=== PATIENT | male | born 1975 ===

== ENCOUNTER 2024-09-18 23:21 | Inpatient (IN) | payer BC, SELFPAY ==
[2024-09-18 21:41] VITALS: BP 139/91
[2024-09-18 22:03] VITALS: BMI 25.3
[2024-09-18 22:27] LABS: % Basophils 0.8 % (0-2); % Eosinophils 0.1 % (0-6); % Immature Granulocytes 0.7 % (0-0.5); % Lymphocytes 8.9 % (20.5-51.1); % Monocytes 10.6 % (1.7-9.3); % Neutrophils 78.9 % (42.2-75.2); Absolute Basophils 0.1 10^3/uL (0-0.2); Absolute Immature Granulocytes 0.1 10^3/uL (0-0.05); Absolute Monocytes 1.1 10^3/uL (0.1-0.6); Absolute Neutrophils 8.4 10^3/uL (1.4-6.5); Hematocrit 35.6 % (39.0-52.0); Hemoglobin 12.3 g/dL (13.0-18.0); Mean Corp Hgb Conc. 34.6 g/dL (33.0-37.0); Mean Corpuscular Hgb 35.3 pg (27.0-31.0); Mean Corpuscular Volume 102.3 fL (80.0-94.0); Nucleated Red Blood Cells % 0.2 % (-); Platelet Count 201 10^3/uL (130-400); Red Blood Cell Count 3.48 10^6/uL (4.70-6.10); Red Cell Dist. Width 17.4 % (11.5-14.5); White Blood Cell Count 10.7 10^3/uL (4.8-10.8)
[2024-09-18 22:40] LABS: ALT (SGPT) 15 U/L (0-50); AST (SGOT) 100 U/L (17-59); Albumin 3.5 g/dl (3.5-5.0); Alkaline Phosphatase 180 U/L (38-126); Blood Urea Nitrogen 7 mg/dl (9-20); Calcium 7.3 mg/dl (8.4-10.2); Carbon Dioxide 26 mmol/L (22-30); Chloride 93 mmol/L (98-107); Estimated Creatinine Clearance > 125 ml/min; Glucose 143 mg/dl (70-99); Lipase 303 U/L (23-300); Potassium 3.4 mmol/L (3.5-5.1); Sodium 135 mmol/L (135-145); Total Protein 7.3 g/dl (6.3-8.2); eGFR > 60.00
[2024-09-18] MEDS: THIAMINE INJECTION 100 MG IV (22:41)
[2024-09-18] MEDS: NSS 1000 IV (22:41)
[2024-09-18] MEDS: ATIVAN 1 MG IV (22:42)
--- NOTE | 2024-09-18 22:50 | ED.GENMED ---
History of Present Illness
General
Chief Complaint: Alcohol Problem
Source: patient and spouse
Exam Limitations: none
Time Seen by Provider: 09/18/24 22:31
Nursing documentation reviewed up to this point in time: agreed with
History of Present Illness
History of Present Illness:
49-year-old male with a past medical history of hypertension, diabetes, GERD, alcohol abuse who presents to the emergency room for evaluation of jaundice and alcohol withdrawal symptoms; sent for medical evaluation by outpatient alcohol rehab.
Patient reports that he is a very heavy drinker; he says he drinks at least a half a bottle of liquor a day. He says he has been drinking for many years very heavily. He says that he has never had alcohol withdrawal because he has never stopped
drinking for long enough to have withdrawal symptoms. He says that recently he decided to try to stop drinking alcohol; he contacted an outpatient rehab facility and reported that he was having jaundice and withdrawal symptoms and was referred to
the emergency room for assessment. His last drink was tonight around 6 PM he says he had a few beers. He says that over the past few hours he has started to develop tremors, mild anxiety, diaphoresis, nausea. No vomiting. Denies headache. He
denies any abdominal pain. He is notably jaundiced�his says that he has had intermittent jaundice that correlates with heavy drinking for years but over the past month she has noticed jaundice more consistently.
Review of Systems
Review of Systems
All Other Systems: ROS reviewed and negative except as documented in HPI and ROS
Constitutional: Denies fever
Respiratory: Denies trouble breathing
Cardiac: Denies chest pain
ABD/GI: Reports nausea; Denies abdominal pain, vomiting or diarrhea
: Denies flank pain
Musculoskeletal: Denies neck pain or back pain
Skin: Reports other (Jaundice)
Neurological: Denies headache
Psychiatric: Reports anxiety
Phy Exam
Physical Exam
Physical Exam:
General: Awake, alert, oriented x3; somewhat guarded
Head: Normocephalic, atraumatic
Eyes: Conjunctiva normal, pupils approximately 5 mm and reactive to light bilaterally, scleral icterus present
Throat: Airway intact, handling secretions
Neck: Trachea midline, supple without meningismus
Lungs: Clear to auscultation bilaterally, no wheezing, rales, rhonchi
Heart: Regular rate and rhythm, no murmurs, gallops, or rubs
Abd: Soft, non distended, nontender
Neuro: No gross deficits
Skin: Jaundiced, no rash
Extremities: Bilateral lower extremity edema; palpable pulses all extremities
Scores
Heart Failure Risk
Heart Failure Risk Score: Not Applicable
Heart Score for Chest Pain Patients
STEMI patient?: Not applicable
Withdrawal Assessment of Alcohol
Withdrawal Assessment Completed?: Yes
Nausea and Vomiting: Mild nausea with no vomiting
Tactile Disturbances: None
Tremor: Moderate, with patient's arms extended
Auditory Disturbances: Not present
Paroxysmal Sweats: Beads of sweat obvious on forehead
Visual Disturbances: Not present
Anxiety: Moderately anxious, or guarded, so anxiety is inferred
Headache, Fullness in Head: Not present
Agitation: Normal activity
Orientation and clouding of sensorium: Oriented and can do serial additions
Total CIWA Score: 13
Alcohol Withdrawal Medication Recommendation: Equal to MSAS Score 5-7. Lorazepam 1mg IV or PO NOW & re-assess q2hrs
Course
Orders/Labs/Results
Orders:
Orders
09/18/24 22:13
Complete Blood Count/With Diff Urgent
Comprehensive Metabolic Panel Urgent
Lipase Urgent
09/18/24 22:32
Electrocardiogram (*1) Urgent
Reason for Study: Tachycardia
EKG- Treatment ONCE
Acetaminophen Urgent
Alcohol Urgent
Drug Screen, Urine [Urine Drug Abuse Screen] Urgent
Salicylate Urgent
Lorazepam [Ativan] 1 mg IV NOW STA
Thiamine Injection 100 mg IV NOW STA
09/18/24 22:33
0.9% Sodium Chloride 1000 ml [Nss] 1,000 ml IV BOLUS
FOLic ACID [Folvite] 1 mg 0.9% Sodium Chloride 50 ml [Nss] 50 ml IV ONCE
09/18/24 22:46
Potassium Chloride [KCl] 20 meq 0.9% Sodium Chloride 150 ml [Nss] 150 ml IV NOW
09/18/24 22:49
US Abdomen Complete/Upper Urgent
Comment:
Reason For Exam: jaundice
Abnormal Lab Results
09/18/24
22:13
RBC 3.48 L 10^6/uL
(4.70-6.10)
Hgb 12.3 L g/dL
(13.0-18.0)
Hct 35.6 L %
(39.0-52.0)
MCV 102.3 H fL
(80.0-94.0)
MCH 35.3 H pg
(27.0-31.0)
RDW 17.4 H %
(11.5-14.5)
MPV 11.0 H fL
(7.4-10.4)
Abs Immat Gran (auto) 0.1 H 10^3/uL
(0-0.05)
Absolute Neuts (auto) 8.4 H 10^3/uL
(1.4-6.5)
Absolute Lymphs (auto) 1.0 L 10^3/uL
(1.2-3.4)
Absolute Monos (auto) 1.1 H 10^3/uL
(0.1-0.6)
Immature Gran % 0.7 H %
(0-0.5)
Neutrophils % 78.9 H %
(42.2-75.2)
Lymphocytes % 8.9 L %
(20.5-51.1)
Monocytes % 10.6 H %
(1.7-9.3)
Potassium 3.4 L mmol/L
(3.5-5.1)
Chloride 93 L mmol/L
(98-107)
BUN 7 L mg/dl
(9-20)
Creatinine 0.6 L mg/dL
(0.7-1.3)
Glucose 143 H mg/dl
(70-99)
Calcium 7.3 L mg/dl
(8.4-10.2)
Total Bilirubin 17.0 H mg/dl
(0.2-1.3)
AST 100 H U/L
(17-59)
Alkaline Phosphatase 180 H U/L
(38-126)
Lipase 303 H U/L
(23-300)
09/18/24 22:13
09/18/24 22:13
Vital Signs
Initial and Last Documented VS:
Initial Vital Signs
Temp Pulse Resp BP Pulse Ox
37.3 C 94 18 139/91 98
09/18/24 21:41 09/18/24 21:41 09/18/24 21:41 09/18/24 21:41 09/18/24 21:41
Last Documented Vital Signs
Temp Pulse Resp BP Pulse Ox
37.3 C 93 17 139/91 98
09/18/24 21:41 09/18/24 22:15 09/18/24 22:15 09/18/24 21:41 09/18/24 22:15
MDM/Problems Addressed
Differential Diagnosis Includes:
Alcohol withdrawal, alcoholic hepatitis, alcoholic pancreatitis, cirrhosis
MDM/Problems Addressed:
49-year-old male with long history of alcohol abuse presents to the emergency room with alcohol withdrawal symptoms and jaundice�he is currently seeking alcohol cessation. Heart rate in the 90s, normotensive, rest of vitals normal. Physical exam
as above. Will place an IV check labs including a CBC and CMP, lipase, INR. Check alcohol level and UDS. Will check EKG. Treat with thiamine/folate, fluids, Ativan. Reassess.
Labs reviewed: CBC shows acceptable platelet count. CMP mild hypokalemia which we will replete. T. bili markedly elevated at 17, AST marginally elevated at 100. Alk phos slightly elevated 180. Lipase marginal at 303. Will order upper abdominal
ultrasound to evaluate liver; nothing to suggest cholelithiasis/cholecystitis, LFTs seem quite clearly alcohol related. Will admit for continued treatment of alcohol withdrawal, fluids, follow-up of abnormal LFTs. Discussed with hospitalist.
Chronic conditions affecting care:
Alcohol abuse
*Pulse Oximetry
Patient hypoxic: no
*EKG
Interpreted by ED Provider?: Yes
Heart Rate: 93
Rate: normal
Rhythm: sinus
[place]: normal axis
Interval: long QT
QRS Pattern: normal QRS
Ischemia: no ischemia
*Critical Care Note
Total Time (30-74mins, 75-104mins- exclusive of procedures): Not Applicable
Data Reviewed
Source: patient and spouse
Patient Management
Social determinants of health affecting care: Substance abuse (Alcohol abuse)
Discussion with other providers: Hospitalist (Discussed with hospitalist)
Escalation/DeEscalation of care consider admission/obs:
Admission indicated
ED Attending Note
-
Portions of this chart may have been created with voice recognition software.� Occasional wrong word or��sound alike� substitutions may have occurred due to the inherent limitations of voice recognition software.
Discharge Plan
Departure
Patient Disposition: Admit
Date of Disposition: 09/18/24
Time of Disposition: 22:57
Admit to doctor: Melvin
Presentation/result/management discussed w/ accepting MD/DO: Hospitalist
Discharge Problem:
Alcohol withdrawal, Alcoholic hepatitis
Interventions
Interventions:
*Risk Screen - Suicide Last Done: 09/18/24 21:45
*General Assessment Last Done: 09/18/24 21:44
*Neglect/Abuse Screening Last Done: 09/18/24 21:45
ED- Fall Risk Assessment Last Done: 09/18/24 22:03
*ED COVID-19 Vaccine History Last Done: 09/18/24 21:44
ED- Neurological Assessment Last Done: 09/18/24 22:03
ED-Psychological Assessment Last Done: 09/18/24 22:07
Discharge Date and Time
Print Language: GERMAN
[2024-09-18 23:00] VITALS: BP 122/81
--- NOTE | 2024-09-18 23:14 | HPS.HSE ---
Family Physician
-
Family Physician:
Chief Complaint
-
alcohol withdrawal
History of Present Illness
49-year-old male past medical history of alcohol use disorder, hypertension, diabetes, GERD, varicose veins presenting to the emergency room for evaluation of jaundice and alcohol withdrawal symptoms. He was sent in for evaluation by outpatient
alcohol rehab. He states that he is a very heavy drinker. He drinks at least half a bottle of liquor per day. He has been drinking heavily for many years. He has never had alcohol withdrawal but he never stopped drinking for long enough to have
withdrawal symptoms. Recently he decided to stop drinking alcohol 2 days ago.
He contacted outpatient rehab facility and told them he was having jaundice and withdrawal symptoms was told to come to the emergency room. His last drink was tonight at 6 PM and he had a few beers at that time. He cut down on the liquor
yesterday. Over the past few years he developed tremors, mild anxiety, diaphoresis and nausea. Denies headache. He has had jaundice that correlates with alcohol for years but over the past month he has had more jaundice.
He is having some abdominal discomfort and burping a lot. He had an episode of vomiting. He denies vomiting blood or blood in the stool or black stool.
He does feel short of breath when he exerts himself at times.
He denies smoking cigarettes or using any drugs.
Medical History
Past Medical History
Past Medical History: Reports Other ( alcohol use disorder, hypertension, diabetes, GERD)
Past Surgical History: Reports Other (varicose veins surgery )
Social History
Tobacco: Non-smoker
Alcohol: Daily
Drug: None
Family History
Family History: Not pertinent
Allergies / Home Medications
Allergies reflects when Allergies were last updated in [facility].
Home Medications with original date entered in [facility]
Allergy/Medication List:
Allergies
Allergy/AdvReac Type Severity Reaction Status Date / Time
No Known Allergies Allergy Unverified 09/18/24 21:44
Home Medications
bisoprolol fumarate 10 mg tablet 10 mg PO HS 09/18/24
metformin 500 mg tablet 1,000 mg PO QPM 09/18/24
metformin 500 mg tablet 500 mg PO DAILY 09/18/24
omeprazole 40 mg capsule,delayed release 40 mg PO DAILY 09/18/24
Review of Systems
-
History Source: Patient
A 12 point ROS was completed and negative except as noted: Yes
Constitutional: Reports No Symptoms
EENT: Reports No Symptoms
Respiratory: Reports No Symptoms
Cardiac: Reports No Symptoms
Abdomen/GI: Reports See HPI
: Reports No Symptoms
Musculoskeletal: Reports No Symptoms
Skin: Reports No Symptoms
Neurological: Reports No Symptoms
Endocrine: Reports No Symptoms
Hematologic/Lymphatic: Reports No Symptoms
Psych: Reports No Symptoms
Physical Exam
Vital Signs
Vital Signs
Temp Pulse Resp BP Pulse Ox
99.1 F 93 17 139/91 98
09/18/24 21:41 09/18/24 22:15 09/18/24 22:15 09/18/24 21:41 09/18/24 22:15
Physical Exam
General: Well Developed, Well Nourished and No Apparent Distress
HEENT: NormoCephalic, Moist mucous membranes and Atraumatic
Respiratory: Clear
Cardiac: S1/S2 and Regular Rhythm; No Murmur or Rub
GI: Soft, Non Tender, Non Distended and Normal Bowel Sounds; No Organomegaly
Rectal: Deferred by Provider
Musculoskeletal: No Clubbing, No Cyanosis and No Edema
Skin: No Rash
Neuro: Nonfocal/grossly intact and Tremors
Laboratory Results
-
09/18/24 22:13
09/18/24 22:13
Laboratory Results
Total Bilirubin 17.0 mg/dl (0.2-1.3) H 09/18/24 22:13
AST 100 U/L (17-59) H 09/18/24 22:13
ALT 15 U/L (0-50) 09/18/24 22:13
Alkaline Phosphatase 180 U/L (38-126) H 09/18/24 22:13
Lipase 303 U/L (23-300) H 09/18/24 22:13
Data Reviewed
-
Lab Data: Labs Reviewed by me
Old Records: Reviewed
Impression/Plan
-
IMPRESSION:
PLAN:
# Alcohol withdrawal
# Alcohol use disorder
-Alcohol level, salicylate, Tylenol level pending
-IV fluids
-Thiamine and folate
-Alcohol withdrawal protocol
-Phenobarbital protocol
# Transaminitis likely alcoholic hepatitis
-PT/INR pending
-Check abdominal ultrasound
-Will likely require steroids
# Hypokalemia secondary to vomiting
-Replete potassium
-Check magnesium and phosphorus
#GERD/alcoholic gastritis
-continue PPI
Essential hypertension
-Continue bisoprolol
Type 2 diabetes
-Hold metformin
-Insulin sliding scale
Full code
DVT prophylaxis�heparin
Regular diet
[2024-09-18] MEDS: FOLVITE 50.2 MG IV (23:36)
[2024-09-19] VITALS (12 sets, daily range): BP systolic 106–137; BP diastolic 63–88; BMI 24.9
[2024-09-19] MEDS: KCL 160 MEQ IV (00:10)
[2024-09-19 00:11] LABS: Amphetamines Negative (Negative); Barbiturates Negative (Negative); Benzodiazepines Negative (Negative); Buprenorphine Negative (Negative); Cocaine Negative (Negative); Marijuana Negative (Negative); Methadone Negative (Negative); Methamphetamines Negative (Negative); Opiates Negative (Negative); Phencyclidine Negative (Negative); Tricyclic Antidepressants Negative (Negative)
[2024-09-19 00:36] LABS: INR 1.55; PT 18.8 Sec (11.4-14.6)
[2024-09-19 00:38] LABS: Acetaminophen < 10 ug/ml (10-30); Salicylate < 1.0 mg/dl (2.0-20.0)
[2024-09-19 00:39] LABS: Alcohol None Detected
[2024-09-19] MEDS: ATIVAN 1 MG PO (01:34)
[2024-09-19] MEDS: NSS 1000 IV ×3 (02:09→23:18)
[2024-09-19] MEDS: PHENOBARBITAL 104 MG IV (02:09)
[2024-09-19 02:28] LABS: % Basophils 0.9 % (0-2); % Eosinophils 0.2 % (0-6); % Immature Granulocytes 0.6 % (0-0.5); % Lymphocytes 9.9 % (20.5-51.1); % Monocytes 11.8 % (1.7-9.3); % Neutrophils 76.6 % (42.2-75.2); Absolute Basophils 0.1 10^3/uL (0-0.2); Absolute Immature Granulocytes 0.1 10^3/uL (0-0.05); Absolute Lymphocytes 0.9 10^3/uL (1.2-3.4); Absolute Monocytes 1.1 10^3/uL (0.1-0.6); Absolute Neutrophils 7.1 10^3/uL (1.4-6.5); Hematocrit 31.8 % (39.0-52.0); Hemoglobin 10.8 g/dL (13.0-18.0); Mean Corpuscular Hgb 35.1 pg (27.0-31.0); Mean Corpuscular Volume 103.2 fL (80.0-94.0); Mean Platelet Volume 10.7 fL (7.4-10.4); Nucleated Red Blood Cells % 0.2 % (-); Platelet Count 171 10^3/uL (130-400); Red Blood Cell Count 3.08 10^6/uL (4.70-6.10); Red Cell Dist. Width 17.6 % (11.5-14.5); White Blood Cell Count 9.3 10^3/uL (4.8-10.8)
[2024-09-19 02:44] LABS: ALT (SGPT) 13 U/L (0-50); AST (SGOT) 90 U/L (17-59); Alkaline Phosphatase 160 U/L (38-126); Blood Urea Nitrogen 7 mg/dl (9-20); Calcium 6.9 mg/dl (8.4-10.2); Carbon Dioxide 28 mmol/L (22-30); Chloride 95 mmol/L (98-107); Estimated Creatinine Clearance > 125 ml/min; Glucose 125 mg/dl (70-99); Magnesium 1.1 mg/dl (1.6-2.3); Phosphorus 2.4 mg/dl (2.5-4.5); Potassium 3.8 mmol/L (3.5-5.1); Sodium 136 mmol/L (135-145); Total Bilirubin 15.8 mg/dl (0.2-1.3); Total Protein 6.4 g/dl (6.3-8.2); eGFR > 60.00
[2024-09-19] MEDS: NSS (PRESERVATIVE FREE) 0.5 ML IV ×2 (02:48→18:16)
[2024-09-19] MEDS: ATIVAN 1 MG IV ×5 (02:48→22:11)
[2024-09-19] MEDS: CALCIUM GLUCONATE 100 IV (03:55)
--- NOTE | 2024-09-19 04:13 | PTCARENOTE ---
Addendum entered by Michael Benitez RN 09/19/24 04:17:
urgent lab work drawn per order. calcium came back critical 6.9, magnesium 1.1. notified Sh[facility] DIA, orders entered per MAR. care ongoing.
Original Note:
pt admitted from ED- pt is AAOx3- flat affect but cooperative. MSAS 5- medicated per MAR. pt with severe tremors. NSR/ST on the monitor, ST with activity. on RA 97%. denies any nausea at this time. eyes jaundice, scabs to bilateral toes CASE. IV
fluids infusing. phenobarb taper started. pt is unsteady on his feet d/t the tremors. bed alarm on d/t alcohol withdrawal. care ongoing.
[2024-09-19] MEDS: MAGNESIUM SULFATE 50 IV ×2 (04:46→14:37)
[2024-09-19 08:10] LABS: Glucose - Point of Care 125 mg/dl (70-99)
[2024-09-19] MEDS: FOLVITE 1 MG PO (08:10)
[2024-09-19] MEDS: THIAMINE INJECTION 200 MG IV ×2 (08:10→20:14)
[2024-09-19] MEDS: PROTONIX 40 MG PO (08:10)
[2024-09-19] MEDS: HEPARIN 5000 UNITS SC ×2 (08:10→20:14)
[2024-09-19] MEDS: PHENOBARBITAL 97.5 MG IV ×3 (08:11→22:08)
[2024-09-19] MEDS: NOVOLOG FLEXPEN-LOW RESISTANCE SC ×2 (08:23→17:12)
[2024-09-19 08:38] LABS: Glycohemoglobin (HgbA1c) 6.9 % (4.0-5.6)
--- NOTE | 2024-09-19 10:54 | CON.GI ---
Addendum entered and electronically signed by Jo Ann Dash MD 09/19/24 13:57:
I saw and examined the patient.
The DOCK BOSS's note was reviewed and I agree with the note.
49yo with hx GERD, HTN, NIDDM, colon polyps, varicose vein and ETOH abuse with admission overnight with ETOH withdrawal and jaundice. On admission noted with bili 17, AST 100, ALT 15, alk phos 180, lipases 303with INR 1.55 and normal platelets
171 and initial albumin 3.5. In review with patient he admits to heavy ETOH use for years with some increased use over last year. He currently was consuming 1/2 large bottle of liquor daily with last drink 09/18. No hx prior hepatology
evaluation or rehab in past. No hx GI bleeding, confusion or abdominal distention but now noted with LE swelling.
-- Decompensated liver cirrhosis versus alcoholic hepatitis. labs 09/18 DF 43.7 , MELD 3.0 23
-- Alcohol withdrawal
-- Electrolyte imbalance
-- Macrocytic anemia
-- Elevated lipase. Denies any abdominal pain at present. Possible pancreatitis
plan
Continue monitor MELD labs daily
Will hold off on steroids for now. Bilirubin is currently trending down. Will trend labs
Alcohol withdrawal protocol as per medical team
Correction of electrolytes as per medical team
check b12/ folate level
If patient develops abdominal pain will recommend CT abdomen with contrast
Counseled on alcohol abstinence in the future.
Outpatient GI/hepatology [id number] workup for liver cirrhosis
Original Note:
Consultation
-
Date/Time Consultation Requested: 09/19/24 0915
Date/Time Consultation Performed: 09/19/24 1045
Requesting Provider: Sd Helm MD
Performing Provider: SOUTH Celis, Jo Ann Dash MD
Reason for Consultation: ETOH withdrawal
Medical History
Chief Complaint / HPI
Chief Complaint: jaundice, ETOH withdrawal
History of Present Illness:
Pt is a 49yo with hx GERD, HTN, NIDDM, colon polyps, varicose vein and ETOH abuse with admission overnight with ETOH withdrawal and jaundice. On admission noted with bili 17, AST 100, ALT 15, alk phos 180, lipases 303with INR 1.55 and normal
platelets 171 and initial albumin 3.5. In review with patient he admits to heavy ETOH use for years with some increased use over last year. He currently was consuming 1/2 large bottle of liquor daily with last drink 09/18. No hx prior hepatology
evaluation or rehab in past. No hx GI bleeding, confusion or abdominal distention but now noted with LE swelling.
Pt admits to chronic diarrhea. He did have colonoscopy within last year did not recall where completed but noted polyps and due 1 year follow up. He also admits to nausea without vomiting but denies abdominal pain, or rectal bleeding. Distant
hx EGD for GERD in past.
Past Medical History
Past Medical History: GERD, HTN, NIDDM and Other (ETOH abuse, varicose veins, colon polyps (per patient due 1 year follow up) )
Social History
Tobacco: Former Smoker
Alcohol: Chronic Alcoholic
Drug: None
Personal:
Living: With Family
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
Family History
Family History: Other (no family hx cirrhosis, family hx DM and father with neuropathy)
Allergies / Home Medications
Allergy/AdvReac Type Severity Reaction Status Date / Time
No Known Allergies Allergy Unverified 09/18/24 21:44
�Medication �Instructions �Recorded
bisoprolol fumarate 10 mg tablet 10 mg PO HS Blood Pressure 09/18/24
metformin 500 mg tablet 1,000 mg PO QPM Diabetes 09/18/24
metformin 500 mg tablet 500 mg PO DAILY Diabetes 09/18/24
omeprazole 40 mg capsule,delayed 40 mg PO DAILY Gastrointestinal 09/18/24
release Issue
Review of Systems
-
History Source: Patient
Constitutional: Reports Fatigue
EENT: Reports Other (jaundice )
Respiratory: Reports No Symptoms
Cardiac: Reports No Symptoms
Abdomen/GI: Reports Nausea and Diarrhea
: Reports Dark Urine
Musculoskeletal: Reports Edema
Skin: Reports No Symptoms
Neurological: Reports Weakness and Other (tremors )
Endocrine: Reports No Symptoms
Hematologic/Lymphatic: Reports No Symptoms
Vital Signs
Temp Pulse Resp BP Pulse Ox
98.7 F 87 21 120/77 93
09/19/24 07:40 09/19/24 10:00 09/19/24 10:00 09/19/24 10:00 09/19/24 10:00
Physical Exam
Exam
General: Other (marked jaundice with tremors, drifts off in conversation)
HEENT: Normocephalic and Other (jaundice - icteric sclera )
Respiratory: Clear
Cardiac: Regular Rhythm
GI: Soft, Non Tender, Non Distended and Organomegaly (minimal Heptomegaly)
Musculoskeletal: No Clubbing and No Cyanosis
Skin: Warm and Dry
Neuro: Other (drifts off in conversation)
Psych: Calm
Results
WBC 9.3 10^3/uL (4.8-10.8) 09/19/24 02:19
Hgb 10.8 g/dL (13.0-18.0) L 09/19/24 02:19
Hct 31.8 % (39.0-52.0) L 09/19/24 02:19
MCV 103.2 fL (80.0-94.0) H 09/19/24 02:19
Plt Count 171 10^3/uL (130-400) 09/19/24 02:19
Absolute Neuts (auto) 7.1 10^3/uL (1.4-6.5) H 09/19/24 02:19
PT 18.8 Sec (11.4-14.6) H 09/18/24 23:46
INR 1.55 09/18/24 23:46
Sodium 136 mmol/L (135-145) 09/19/24 02:19
Sodium Cancelled 09/19/24 02:19
Potassium 3.8 mmol/L (3.5-5.1) 09/19/24 02:19
Potassium Cancelled 09/19/24 02:19
Chloride 95 mmol/L (98-107) L 09/19/24 02:19
Chloride Cancelled 09/19/24 02:19
Carbon Dioxide 28 mmol/L (22-30) 09/19/24 02:19
Carbon Dioxide Cancelled 09/19/24 02:19
BUN 7 mg/dl (9-20) L 09/19/24 02:19
BUN Cancelled 09/19/24 02:19
Creatinine 0.6 mg/dL (0.7-1.3) L 09/19/24 02:19
Creatinine Cancelled 09/19/24 02:19
Calcium 6.9 mg/dl (8.4-10.2) L* 09/19/24 02:19
Calcium Cancelled 09/19/24 02:19
Total Bilirubin 15.8 mg/dl (0.2-1.3) H 09/19/24 02:19
Total Bilirubin Cancelled 09/19/24 02:19
AST 90 U/L (17-59) H 09/19/24 02:19
AST Cancelled 09/19/24 02:19
ALT 13 U/L (0-50) 09/19/24 02:19
ALT Cancelled 09/19/24 02:19
Alkaline Phosphatase 160 U/L (38-126) H 09/19/24 02:19
Alkaline Phosphatase Cancelled 09/19/24 02:19
Lipase 303 U/L (23-300) H 09/18/24 22:13
Diagnostic Image Results:
09/19 US abdomen
IMPRESSION: The liver is enlarged with a coarsened echotexture suggestive of cirrhosis
The gallbladder is contracted
There is mild ascites
Prior GI Procedures:
EGD:years ago for GERD
Colonoscopy:withitn last year with polyps due 1 year follow up
Assessment / Plan
-
Pt is a 49yo with hx GERD, HTN, NIDDM, colon polyps, varicose vein and ETOH abuse with admission overnight with ETOH withdrawal and jaundice. On admission noted with bili 17, AST 100, ALT 15, alk phos 180, lipases 303with INR 1.55 and normal
platelets 171 and initial albumin 3.5. In review with patient he admits to heavy ETOH use for years with some increased use over last year. He currently was consuming 1/2 large bottle of liquor daily with last drink 09/18. No hx prior hepatology
evaluation or rehab in past. No hx GI bleeding, confusion or abdominal distention but now noted with LE swelling.
-ETOH hepatitis with elevated DF on admission with decompensation with LE swelling/ mild ascites
-likely underlying cirrhosis per US
-elevated lipase likely ETOH pancreatitis
-ETOH abuse with withdrawal
-anemia
-coagulopathy
-hypomagnesemia
-hypokalemia on admission
-LE swelling
-US with mild ascites
other med problems:
-GERD
-HTN
-NIDDM
-colon polyp with recommended 1 year follow up
-varicose veins
PLAN:
current admission with ETOH withdrawal, ETOH hepatitis/pancreatitis with likely underlying cirrhosis-- new diagnosis
based on admission labs 09/18 DF 43.7 with control of 13, MELD 3.0 23
cont to trend labs
will review with Dr. Dash for steroid course-- pt with some drifting off in conversation to ensure compliance with course also need replete of electrolytes
no signs of infection, no fever, leukocytoses etc
check hepatitis panel, will need OP serology testing
counseled on ETOH abstinence-- pt to consider ETOH rehab
ETOH withdrawal per medical team-
good nutrition add supplement daily
thiamine, folate repletion
-
-
Thank you for consultation and allowing me to participate in the patient's care. Please call the bi consultant GI physician during the after hours with any questions or concerns.
[2024-09-19] MEDS: NSS IV (11:07)
--- NOTE | 2024-09-19 11:37 | CM ---
CM met with pt bedside
Pt resides with his spouse and 3 step-children (14, 21 and 23 y/o) in a 2H with threshold step
Full flight to 2nd floor
Pt is indep with his ASLs- drives+, no ADs
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
Pt has a CGM- [employer]
Denies financial insecurities
PCP- Chidi Escobar
Rx- [facility]
Consult for D/A
Pt admits to daily ETOH use and interested in inpt tx at [facility]
Referral made to [facility] per pt request
Discussion with Dr Randa Helm- no anticipated dc date
Acutely ill and not medically ready for therapy at this time
CM will continue to follow for dc planning
Will benefit from PT/OT once appropriate
VM left for spouse/Leslee per pt request
Introduced self and explained role
Discharge Disposition- inpt D/A - watch for PT/OT needs
[2024-09-19 11:58] LABS: Glucose - Point of Care 153 mg/dl (70-99)
[2024-09-19] MEDS: NOVOLOG FLEXPEN-LOW RESISTANCE 1 UNITS SC (12:24)
--- NOTE | 2024-09-19 13:59 | W.PN.HOSP.TC ---
Today's Communication/Plan
-
Imaging
IMPRESSION: The liver is enlarged with a coarsened echotexture suggestive of cirrhosis
The gallbladder is contracted
There is mild ascites
Physical Exam
NAD, resting comfortably in bed, tremulous
Scleral icterus
Moist mucous membranes
No JVD
CTA bilateral
Normal S1-S2 no murmurs
Soft nontender nondistended bowel sounds active
No peripheral pitting edema
Jaundice
Moves extremities spontaneously
AAOx3
Assessment and Plan
Alcohol withdrawal in the setting of alcohol use disorder
-Thiamine IV followed by PO
-Folate
-MSAS
-Phenobarbital taper
-As needed Ativan
-Asking for help as he wants to go to rehab
Alcohol hepatitis with cirrhosis
-MDF 41.7
-MELD 21
-GI consult for prednisolone 40mg recs
Cirrhosis - New diagnosis - complicated by mild ascites
-Will need outpatient variceal screening
-Unlikely enough fluid to tap at this time
-Will plan to start low dose diuretics if GI agreeable
Electrolyte abnomralities
Hypomag - related to alcohol use
-Replete prn
Hypocal
-Repleted, asymptomatic
Hypophos
-Provide K phos
HypoKalemia
-Repleted
Assessment / Plan
Assessment / Plan
Anticipated Discharge: > 48 hours
Subjective/Interval History
-
Date of Service: September 19, 2024
Seen and examined. Jaundice. Has shakes however per bedside nurse improved especially after receiving phenobarbital
Objective Data
-
Labs:
Laboratory Results
09/19/24 09/19/24 09/19/24
02:19 02:19 02:19
WBC 9.3
Hgb 10.8 L
Hct 31.8 L
Plt Count 171
Sodium 136 Cancelled
Potassium 3.8 Cancelled
Chloride 95 L
Carbon Dioxide
BUN
Creatinine
Glucose
Calcium
Total Bilirubin
AST
ALT
Alkaline Phosphatase
09/19/24 09/19/24 09/19/24
02:19 02:19 02:19
WBC
Hgb
Hct
Plt Count
Sodium
Potassium
Chloride Cancelled
Carbon Dioxide 28 Cancelled
BUN 7 L Cancelled
Creatinine 0.6 L
Glucose
Calcium
Total Bilirubin
AST
ALT
Alkaline Phosphatase
09/19/24 09/19/24 09/19/24
02:19 02:19 02:19
WBC
Hgb
Hct
Plt Count
Sodium
Potassium
Chloride
Carbon Dioxide
BUN
Creatinine Cancelled
Glucose 125 H Cancelled
Calcium 6.9 L* Cancelled
Total Bilirubin 15.8 H
AST
ALT
Alkaline Phosphatase
09/19/24 09/19/24 09/19/24
02:19 02:19 02:19
WBC
Hgb
Hct
Plt Count
Sodium
Potassium
Chloride
Carbon Dioxide
BUN
Creatinine
Glucose
Calcium
Total Bilirubin Cancelled
AST 90 H Cancelled
ALT 13 Cancelled
Alkaline Phosphatase 160 H
09/19/24
02:19
WBC
Hgb
Hct
Plt Count
Sodium
Potassium
Chloride
Carbon Dioxide
BUN
Creatinine
Glucose
Calcium
Total Bilirubin
AST
ALT
Alkaline Phosphatase Cancelled
Vital Signs:
Vital Signs
Temp Pulse Resp BP Pulse Ox
98.5 F 87 21 120/77 97
09/19/24 10:55 09/19/24 10:00 09/19/24 10:00 09/19/24 10:00 09/19/24 11:01
I&O
09/18/24 09/19/24 09/20/24
06:59 06:59 06:59
Intake Total 150 / 150 850 / 850
Output Total 200 / 200
Balance 150 / 150 650 / 650
[2024-09-19 17:04] LABS: Glucose - Point of Care 117 mg/dl (70-99)
[2024-09-19] MEDS: NEUTRA-PHOS POWDER PACKET 250 MG PO ×2 (17:14→22:07)
[2024-09-19 21:48] LABS: Glucose - Point of Care 105 mg/dl (70-99)
[2024-09-19] MEDS: ZEBETA 10 MG PO (22:07)
[2024-09-20] VITALS (12 sets, daily range): BP systolic 88–113; BP diastolic 52–100; BMI 25.8
[2024-09-20] MEDS: ATIVAN 1 MG IV ×3 (00:36→08:36)
--- NOTE | 2024-09-20 01:32 | PTCARENOTE ---
assumed care of patient. pt is AAOx3 but very forgetful. will set off bed alarm. able to make needs known. NSR/ST on the monitor. RA 96%. MSAS q2-score 5-7, given IV ativan per protocol. pt very tremulous. no nausea, says stomach feels less bloated
than yesterday. pt was able to use [facility] x2 assist at the beginning of the shift. middle of shift pt set off bed alarm to go to the BS. pt very very weak, unable to stand by self or with help. very unsafe to get pt OOB at this time. pt used bedpan.
had x2 BM's so far this shift. bed alarm remains on. pt also with SOB on exertion now which is new. oxygen sats remain stable.
[2024-09-20 03:32] LABS: INR 1.92; PT 22.1 Sec (11.4-14.6)
[2024-09-20 03:35] LABS: Hemoglobin 10.8 g/dL (13.0-18.0); Mean Corp Hgb Conc. 34.8 g/dL (33.0-37.0); Mean Corpuscular Hgb 35.9 pg (27.0-31.0); Mean Platelet Volume 11.8 fL (7.4-10.4); Platelet Count 170 10^3/uL (130-400); Red Blood Cell Count 3.01 10^6/uL (4.70-6.10); Red Cell Dist. Width 18.4 % (11.5-14.5); White Blood Cell Count 8.7 10^3/uL (4.8-10.8)
[2024-09-20 03:56] LABS: ALT (SGPT) 13 U/L (0-50); AST (SGOT) 80 U/L (17-59); Albumin 2.7 g/dl (3.5-5.0); Alkaline Phosphatase 147 U/L (38-126); Blood Urea Nitrogen 4 mg/dl (9-20); Carbon Dioxide 24 mmol/L (22-30); Chloride 100 mmol/L (98-107); Estimated Creatinine Clearance > 125 ml/min; Glucose 109 mg/dl (70-99); Potassium 3.6 mmol/L (3.5-5.1); Sodium 134 mmol/L (135-145); Total Protein 5.8 g/dl (6.3-8.2); eGFR > 60.00
--- NOTE | 2024-09-20 04:50 | PTCARENOTE ---
pt bilirubin came back critical this AM 19.0- notified [facility]- no new orders.
[2024-09-20 04:53] LABS: Folate 4.3 ng/ml (2.76-20); Vitamin B12 744 pg/ml (239-931)
[2024-09-20 08:12] LABS: Glucose - Point of Care 101 mg/dl (70-99)
[2024-09-20] MEDS: NOVOLOG FLEXPEN-LOW RESISTANCE SC ×2 (08:14→11:41)
[2024-09-20] MEDS: NSS 1000 IV (08:34)
[2024-09-20] MEDS: PHENOBARBITAL 97.5 MG IV ×3 (08:35→21:09)
[2024-09-20] MEDS: HEPARIN 5000 UNITS SC ×2 (08:35→21:10)
[2024-09-20] MEDS: NEUTRA-PHOS POWDER PACKET 250 MG PO ×4 (08:36→21:08)
[2024-09-20] MEDS: THIAMINE INJECTION 200 MG IV ×2 (08:36→21:11)
[2024-09-20] MEDS: PROTONIX 40 MG PO (08:36)
[2024-09-20] MEDS: NSS (PRESERVATIVE FREE) 0.25 ML IV (08:36)
[2024-09-20] MEDS: FOLVITE 1 MG PO (08:36)
--- NOTE | 2024-09-20 09:21 | W.PN.GI.CBS2 ---
Addendum entered and electronically signed by Jo Ann Dash MD 09/21/24 11:03:
prednisolone 40 mg daily
Addendum entered and electronically signed by Jo Ann Dash MD 09/20/24 14:32:
I saw and examined the patient.
The WASHING MACHINE LOADER's note was reviewed and I agree with the note.
49yo with hx GERD, HTN, NIDDM, colon polyps, varicose vein and ETOH abuse with admission overnight with ETOH withdrawal and jaundice. On admission noted with bili 17, AST 100, ALT 15, alk phos 180, lipases 303with INR 1.55 and normal platelets
171 and initial albumin 3.5. In review with patient he admits to heavy ETOH use for years with some increased use over last year. He currently was consuming 1/2 large bottle of liquor daily with last drink 09/18. No hx prior hepatology
evaluation or rehab in past. No hx GI bleeding, confusion or abdominal distention but now noted with LE swelling.
-- Decompensated liver cirrhosis / alcoholic hepatitis. labs 09/18 DF 43.7 , MELD 3.0 23 repeat labs this am worsening MELD ( 27 ) DF 60
-- Alcohol withdrawal
-- Electrolyte imbalance
-- Macrocytic anemia
-- Elevated lipase. Denies any abdominal pain at present. Possible pancreatitis
plan
Will give him a dose of vitamin K today and repeat INR in a.m.
Will start him on prednisone 40 mg for possible alcoholic hepatitis
Repeat MELD labs tomorrow a.m.
Hepatitis panel pending. Will do complete chronic liver disease workup
Ultrasound abdomen with Doppler
If worsening labs will call tertiary liver transplant center for transfer. I discussed our plan with the patient ( plan discussed with patient's by WASHING MACHINE LOADER over the phone)
Alcohol withdrawal protocol as per medical team
Correction of electrolytes as per medical team
If patient develops abdominal pain will recommend CT abdomen with contrast
Counseled on alcohol abstinence in the future.
Outpatient GI/hepatology [id number] workup for liver cirrhosis
Addendum entered and electronically signed by SOUTH Jara 09/20/24 10:24:
clarification likely acute ETOH pancreatitis with recent increased use
Original Note:
Today's Communication / Plan
-
current admission with ETOH withdrawal, ETOH hepatitis/pancreatitis with likely underlying cirrhosis-- new diagnosis
labs MELD 3.0 09/18 23, repeat 09/20 27, 09/18 DF 43.7 with control of 13, repeat 09/20 60.4
INR with rise to 1.92 will add oral vitamin K now
cont to trend labs closely
no signs of infection, no fever, leukocytoses etc, GI bleed and FBS in low 100's
will start Prednisolone 40mg today
pt states he will be compliant with lab testing and treatment
cont PPI with use
will need Lille score day 7
check hepatitis panel pending with worsening liver dysfunction will add further liver serologies- AMA, SARAH, ceruloplasmin, A1AT etc
again counseled on ETOH abstinence-- pt to consider ETOH rehab
ETOH withdrawal per medical team-
good nutrition cont supplement daily
thiamine, folate repletion
I reviewed with patient if labs continue with worsening trend may need evaluation with hepatology at transplant center
I left message for to review with updates
Assessment / Plan
-
Pt is a 49yo with hx GERD, HTN, NIDDM, colon polyps, varicose vein and ETOH abuse with admission overnight with ETOH withdrawal and jaundice. On admission noted with bili 17, AST 100, ALT 15, alk phos 180, lipases 303with INR 1.55 and normal
platelets 171 and initial albumin 3.5. In review with patient he admits to heavy ETOH use for years with some increased use over last year. He currently was consuming 1/2 large bottle of liquor daily with last drink 09/18. No hx prior hepatology
evaluation or rehab in past. No hx GI bleeding, confusion or abdominal distention but now noted with LE swelling.
-ETOH hepatitis with elevated DF on admission with decompensation with LE swelling/ mild ascites
-likely underlying cirrhosis per US
-elevated lipase likely ETOH pancreatitis
-ETOH abuse with withdrawal
-anemia
-coagulopathy
-hypomagnesemia
-hypokalemia on admission
-LE swelling
-US with mild ascites
other med problems:
-GERD
-HTN
-NIDDM
-colon polyp with recommended 1 year follow up
-varicose veins
PLAN:
current admission with ETOH withdrawal, ETOH hepatitis/pancreatitis with likely underlying cirrhosis-- new diagnosis
labs MELD 3.0 09/18 23, repeat 09/20 27, 09/18 DF 43.7 with control of 13, repeat 09/20 60.4
INR with rise to 1.92 will add oral vitamin K now
cont to trend labs closely
no signs of infection, no fever, leukocytoses etc, GI bleed and FBS in low 100's
will start Prednisolone 40mg today
pt states he will be compliant with lab testing and treatment
cont PPI with use
will need Lille score day 7
check hepatitis panel pending with worsening liver dysfunction will add further liver serologies- AMA, SARAH, ceruloplasmin, A1AT etc
again counseled on ETOH abstinence-- pt to consider ETOH rehab
ETOH withdrawal per medical team-
good nutrition cont supplement daily
thiamine, folate repletion
I reviewed with patient if labs continue with worsening trend may need evaluation with hepatology at transplant center
I left message for to review with updates
Subjective
Subjective
Date of Service: September 20, 2024
09/20 brown soft stool
Objective
Data Reviewed
Laboratory Data:
Laboratory Results
09/20/24 03:13
09/20/24 03:13
Laboratory Results
PT 22.1 Sec (11.4-14.6) H 09/20/24 03:13
INR 1.92 09/20/24 03:13
Phosphorus 2.4 mg/dl (2.5-4.5) L 09/19/24 02:19
Magnesium 1.1 mg/dl (1.6-2.3) L 09/19/24 02:19
Total Bilirubin 19.0 mg/dl (0.2-1.3) H* 09/20/24 03:13
AST 80 U/L (17-59) H 09/20/24 03:13
ALT 13 U/L (0-50) 09/20/24 03:13
Alkaline Phosphatase 147 U/L (38-126) H 09/20/24 03:13
Lipase 303 U/L (23-300) H 09/18/24 22:13
Vital Signs and I&O:
Vital Signs
Temp Pulse Resp BP Pulse Ox
98.6 F 81 23 101/70 95
09/20/24 07:35 09/20/24 06:00 09/20/24 06:00 09/20/24 06:00 09/20/24 04:00
I&O
09/19/24 09/20/24 09/21/24
06:59 06:59 06:59
Intake Total 150 / 150 2286 / 2286
Output Total 400 / 400
Balance 150 / 150 1886 / 1886
Physical Exam
Physical Exam
HEENT: Other (marked jaundice with icteric sclera )
Cardiology: Normal Sinus Rhythm
Pulmonary: Clear
GI: Soft, Distended (minimal ) and Non Tender
Extremities: Edema
Neuro: Other (sleepy but arousable )
--- NOTE | 2024-09-20 10:10 | PN.CDI ---
CDI
- -
CDI:
Physician Documentation Request
Admit Date: 09/18/24 23:21
Dear SOUTH Celis,
Please review the following and provide your response in the progress notes.
Clinical Indicators:
PN, 09/20
#current admission with ETOH withdrawal, ETOH hepatitis/pancreatitis
#...with likely underlying cirrhosis-- new diagnosis
Please clarify the acuity of ETOH (alcohol induced) pancreatitis:
Acute ETOH pancreatitis
Other (please specify):
Type and Acuity of Pancreatitis:
Type / Etiology Acuity
Idiopathic Acute
Biliary (gallstone) Subacute
Infectious (indicate known or suspected organism) Chronic
Cytomegaloviral Acute and chronic
Alcohol induced Other (please specify)
Use of terms such as suspected, likely, concern for, or probable (associated with a specific diagnosis that is being evaluated, monitored, or treated as if it exists) are acceptable and can be coded in the inpatient setting, when documented at the
time of discharge.
Thank you,
Shu Arora RN BSN CCDS
CDI Specialist
please contact via tiger text
Please use your independent medical judgment in providing your response.
[2024-09-20] MEDS: MEPHYTON 10 MG PO (10:14)
[2024-09-20] MEDS: PRELONE 40 MG PO (10:15)
[2024-09-20 10:51] LABS: Magnesium 1.9 mg/dl (1.6-2.3)
[2024-09-20 11:19] LABS: Iron 54 ug/dl (49-181)
[2024-09-20 11:33] LABS: Percent Saturation 31 % (20-50); Total Iron Binding Capacity 170 ug/dl (261-462)
[2024-09-20 11:38] LABS: Glucose - Point of Care 120 mg/dl (70-99)
--- NOTE | 2024-09-20 13:30 | PTCARENOTE ---
Patient's IVF timed out. made aware and that patient is not actively drinking, total input at this time was 120 mls. No new orders at this time.
--- NOTE | 2024-09-20 13:52 | W.PN.UPDATE ---
Update Note
Progress Note Update
I updated on severity of ETOH hepatitis/cirrhosis with rise in MELD and DF since admission. Discussed if not improving will need transfer for hepatology evaluation. Will is agreeable if needs to go. All questions answered.
--- NOTE | 2024-09-20 15:41 | W.PN.HOSP.TC ---
Today's Communication/Plan
-
steroids started
check dvt study rle
vitamin K ordered by GI
Assessment / Plan
Assessment / Plan
Imaging
IMPRESSION: The liver is enlarged with a coarsened echotexture suggestive of cirrhosis
The gallbladder is contracted
There is mild ascites
Physical Exam
NAD, resting comfortably in bed, tremulous
Scleral icterus
Moist mucous membranes
No JVD
CTA bilateral
Normal S1-S2 no murmurs
Soft nontender nondistended bowel sounds active
No peripheral pitting edema
Jaundice
Moves extremities spontaneously
RLE more swollen then left
AAOx3
Assessment and Plan
Alcohol withdrawal in the setting of alcohol use disorder
-Thiamine IV followed by PO
-Folate
-MSAS
-Phenobarbital taper
-As needed Ativan
-Asking for help as he wants to go to rehab
Alcohol hepatitis with cirrhosis and developing coagulopathy as INR 1.9
-MDF 41.7
-MELD 21
-Prednisone started today
-Potentially may require transfer to tertiary center for hepatology eval
-Provide Vit K, reepat in the AM
-Follow up on autoimmune hep labs, chronic chep labs and sylvie labs
Cirrhosis - New diagnosis - complicated by mild ascites
-Will need outpatient variceal screening
-Unlikely enough fluid to tap at this time
-Will plan to start low dose diuretics if GI agreeable
Electrolyte abnomralities
Hypomag - related to alcohol use
-Replete prn
Hypocal
-Repleted, asymptomatic
Hypophos
-Provide K phos
HypoKalemia
-Repleted
Anticipated Discharge: > 48 hours
Subjective/Interval History
-
Date of Service: September 20, 2024
seen and examined. no new comploaints kiet rob ovenriggt events
Objective Data
-
Labs:
Laboratory Results
09/20/24
03:13
PT 22.1 H
INR 1.92
Sodium 134 L
Potassium 3.6
Chloride 100
Carbon Dioxide 24
BUN 4 L
Creatinine 0.6 L
Glucose 109 H
Calcium 7.0 L
Total Bilirubin 19.0 H*
AST 80 H
ALT 13
Alkaline Phosphatase 147 H
Vital Signs:
Vital Signs
Temp Pulse Resp BP Pulse Ox
98.8 F 76 23 93/59 98
09/20/24 11:35 09/20/24 14:00 09/20/24 14:00 09/20/24 14:00 09/20/24 12:35
I&O
09/19/24 09/20/24 09/21/24
06:59 06:59 06:59
Intake Total 150 / 150 2286 / 2286 120 / 120
Output Total 400 / 400
Balance 150 / 150 1886 / 1886 120 / 120
[2024-09-20] MEDS: NOVOLOG FLEXPEN-LOW RESISTANCE 1 UNITS SC (16:53)
[2024-09-20 17:01] LABS: Glucose - Point of Care 159 mg/dl (70-99)
[2024-09-20] MEDS: ZEBETA 10 MG PO (21:08)
[2024-09-20 21:51] LABS: Glucose - Point of Care 195 mg/dl (70-99)
[2024-09-21] VITALS (9 sets, daily range): BP systolic 86–127; BP diastolic 57–75
[2024-09-21 04:30] LABS: Hemoglobin 11.7 g/dL (13.0-18.0); Mean Corp Hgb Conc. 34.4 g/dL (33.0-37.0); Mean Corpuscular Hgb 35.5 pg (27.0-31.0); Mean Platelet Volume 10.9 fL (7.4-10.4); Platelet Count 176 10^3/uL (130-400); Red Cell Dist. Width 17.9 % (11.5-14.5); White Blood Cell Count 8.5 10^3/uL (4.8-10.8)
[2024-09-21 04:40] LABS: INR 1.92; PT 22.4 Sec (11.4-14.6)
[2024-09-21 05:12] LABS: ALT (SGPT) 13 U/L (0-50); AST (SGOT) 60 U/L (17-59); Albumin 2.6 g/dl (3.5-5.0); Alkaline Phosphatase 130 U/L (38-126); Blood Urea Nitrogen 8 mg/dl (9-20); Calcium 6.8 mg/dl (8.4-10.2); Carbon Dioxide 24 mmol/L (22-30); Chloride 101 mmol/L (98-107); Estimated Creatinine Clearance > 125 ml/min; Glucose 123 mg/dl (70-99); Potassium 3.7 mmol/L (3.5-5.1); Sodium 137 mmol/L (135-145); Total Bilirubin 19.8 mg/dl (0.2-1.3); eGFR > 60.00
--- NOTE | 2024-09-21 06:14 | PTCARENOTE ---
MSAS of 2 throughout the night. No prn ativan needed. Patient withdrawn and tearful at times. Am calcium 6.8- contact lens molder provider made aware and ordered 1x dose calcium gluconate.
[2024-09-21] MEDS: CALCIUM GLUCONATE 100 IV (06:25)
[2024-09-21] MEDS: NOVOLOG FLEXPEN-LOW RESISTANCE SC ×2 (07:37→12:33)
[2024-09-21 07:46] LABS: Glucose - Point of Care 110 mg/dl (70-99)
[2024-09-21] MEDS: THIAMINE INJECTION 200 MG IV ×2 (07:53→20:25)
[2024-09-21] MEDS: PRELONE 40 MG PO (07:53)
[2024-09-21] MEDS: LUMINAL 64.8 MG PO ×3 (07:53→20:24)
[2024-09-21] MEDS: HEPARIN 5000 UNITS SC ×2 (07:53→20:25)
[2024-09-21] MEDS: FOLVITE 1 MG PO (07:53)
[2024-09-21] MEDS: PROTONIX 40 MG PO (07:55)
--- NOTE | 2024-09-21 08:53 | PTCARENOTE ---
Patient received from night stocker. Patient resting comfortably. No events noted over night. No complaints of pain at this time. Currently on MSAS, current shift change AM score is 3 for mild tremors. 'NPO' at this time for abdominal US as well
as lower extremity US. Call zee in reach.
[2024-09-21] MEDS: NEUTRA-PHOS POWDER PACKET PO ×2 (09:00→12:54)
--- NOTE | 2024-09-21 10:50 | W.PN.GI.CBS2 ---
Today's Communication / Plan
-
continue monitor MELD labs
continue steroids
Vit K today
Assessment / Plan
-
49yo with hx GERD, HTN, NIDDM, colon polyps, varicose vein and ETOH abuse with admission overnight with ETOH withdrawal and jaundice. On admission noted with bili 17, AST 100, ALT 15, alk phos 180, lipases 303with INR 1.55 and normal platelets
171 and initial albumin 3.5. In review with patient he admits to heavy ETOH use for years with some increased use over last year. He currently was consuming 1/2 large bottle of liquor daily with last drink 09/18. No hx prior hepatology
evaluation or rehab in past. No hx GI bleeding, confusion or abdominal distention but now noted with LE swelling.
-- Decompensated liver cirrhosis / alcoholic hepatitis. labs 09/18 DF 43.7 , MELD 3.0 23 repeat labs this am 09/21 MELD ( 26 ) DF 63
- US abd - mild ascites
-- Alcohol withdrawal
-- Electrolyte imbalance
-- Macrocytic anemia
-- Elevated lipase. Denies any abdominal pain at present. Possible ETOH pancreatitis
plan
No signs of infection. No change in mental status. Prednisolone 40 mg # day 2
Will give another dose of vitamin K today
Repeat MELD labs tomorrow a.m.
Hepatitis panel pending. Will do complete chronic liver disease workup
Ultrasound abdomen with Doppler pending
Case discussed with transplant hepatology at [facility]-Dr. Moore . Continue steroids for now. Continue monitor labs. If no improvement or worsening renal function in 2 days recommends transfer
Alcohol withdrawal protocol as per medical team
Correction of electrolytes as per medical team
If patient develops abdominal pain will recommend CT abdomen with contrast
Counseled on alcohol abstinence in the future.
Discussed plan in detail with patient. He verbalized understanding
Total Time Spent with Patient (in minutes): 35
Subjective
Subjective
Date of Service: September 21, 2024
denies any abdominal pain/ nausea / vomiting .
Objective
Data Reviewed
Laboratory Data:
Laboratory Results
09/21/24 04:18
09/21/24 04:18
Laboratory Results
PT 22.4 Sec (11.4-14.6) H 09/21/24 04:18
INR 1.92 09/21/24 04:18
Phosphorus 2.0 mg/dl (2.5-4.5) L 09/20/24 03:13
Magnesium 1.9 mg/dl (1.6-2.3) 09/20/24 03:13
Total Bilirubin 19.8 mg/dl (0.2-1.3) H* 09/21/24 04:18
AST 60 U/L (17-59) H 09/21/24 04:18
ALT 13 U/L (0-50) 09/21/24 04:18
Alkaline Phosphatase 130 U/L (38-126) H 09/21/24 04:18
Lipase 303 U/L (23-300) H 09/18/24 22:13
Vital Signs and I&O:
Vital Signs
Temp Pulse Resp BP Pulse Ox
98.3 F 81 25 101/70 98
09/21/24 07:30 09/21/24 06:00 09/21/24 06:00 09/21/24 04:19 09/20/24 21:58
I&O
09/20/24 09/21/24 09/22/24
06:59 06:59 06:59
Intake Total 2286 / 2286 1240 / 1240
Output Total 400 / 400 600 / 600
Balance 1886 / 1886 640 / 640
Physical Exam
Physical Exam
HEENT: Other (icteric)
GI: Soft, Non Distended and Non Tender
Neuro: Other (AAO x 3)
[2024-09-21 12:21] LABS: Glucose - Point of Care 146 mg/dl (70-99)
[2024-09-21] MEDS: MEPHYTON 10 MG PO (12:57)
[2024-09-21] MEDS: ATIVAN 1 MG IV ×2 (13:04→15:00)
[2024-09-21] MEDS: NSS (PRESERVATIVE FREE) 0.5 ML IV ×2 (13:04→15:01)
--- NOTE | 2024-09-21 13:45 | W.PN.UPDATE ---
Update Note
Progress Note Update
I discussed with Dr. Maldonado -transplant real estate legal assistant at [place]. Recommend to do workup to rule out sepsis (UA/blood culture/chest x-ray/diagnostic paracentesis). Hold off on steroids until those test were negative. Check MELD and Savan[place] score
on day 4 of steroid. Continue monitor LFT. If worsening LFT or renal function in the future they will accept for transfer.
Recommendations discussed with medical team.
--- NOTE | 2024-09-21 13:50 | W.PN.HOSP.TC ---
Today's Communication/Plan
-
Assessment / Plan
Assessment / Plan
Imaging
IMPRESSION: The liver is enlarged with a coarsened echotexture suggestive of cirrhosis
The gallbladder is contracted
There is mild ascites
Physical Exam
NAD, resting comfortably in bed, tremulous
Scleral icterus
Moist mucous membranes
No JVD
CTA bilateral
Normal S1-S2 no murmurs
Soft nontender nondistended bowel sounds active
No peripheral pitting edema
Jaundice
Moves extremities spontaneously
RLE more swollen then left
AAOx3
Assessment and Plan
Alcohol withdrawal in the setting of alcohol use disorder
-Thiamine IV followed by PO
-Folate
-MSAS
-Phenobarbital taper
-As needed Ativan
-Asking for help as he wants to go to rehab
Alcohol hepatitis with cirrhosis and developing coagulopathy as INR 1.9
-MDF 41.7
-MELD 21
-Prednisone started today
-Potentially may require transfer to tertiary center for hepatology eval
-Provide Vit K, reepat in the AM
-Follow up on autoimmune hep labs, chronic chep labs and sylvie labs
Cirrhosis - New diagnosis - complicated by mild ascites
-Will need outpatient variceal screening
-Prior to tertiary hepatology Center accepting they would like a full sepsis workup completed
Electrolyte abnomralities
Hypomag - related to alcohol use
-Replete prn
Hypocal
-Repleted, asymptomatic
Hypophos
-Provide K phos
HypoKalemia
-Repleted
Anticipated Discharge: > 48 hours
Subjective/Interval History
-
Date of Service: September 21, 2024
Seen and examined. No new complaints. No acute overnight events.
Still tremulous
No agitation anxiety ants crawling on him or seeing things that does not present.
Objective Data
-
Labs:
Laboratory Results
09/21/24
04:18
WBC 8.5
Hgb 11.7 L
Hct 34.0 L
Plt Count 176
PT 22.4 H
INR 1.92
Sodium 137
Potassium 3.7
Chloride 101
Carbon Dioxide 24
BUN 8 L
Creatinine 0.5 L
Glucose 123 H
Calcium 6.8 L*
Total Bilirubin 19.8 H*
AST 60 H
ALT 13
Alkaline Phosphatase 130 H
Vital Signs:
Vital Signs
Temp Pulse Resp BP Pulse Ox
98.7 F 81 25 101/70 98
09/21/24 11:23 09/21/24 06:00 09/21/24 06:00 09/21/24 04:19 09/20/24 21:58
I&O
09/20/24 09/21/24 09/22/24
06:59 06:59 06:59
Intake Total 2286 / 2286 1240 / 1240
Output Total 400 / 400 600 / 600
Balance 1886 / 1886 640 / 640
--- NOTE | 2024-09-21 16:20 | W.PN.UPDATE ---
Update Note
Progress Note Update
Para performed: 800 mL fluid removed with RUQ access.
[2024-09-21 16:59] LABS: Body Fluid Mononuclear 81.6 %; Body Fluid Polymorphonuclear 18.4 %; Body Fluid WBC 60 /CUMM
[2024-09-21 17:11] LABS: Body Fluid Second Tech EYM
[2024-09-21 17:12] LABS: Body Fluid Albumin < 1.0 g/dl; Body Fluid Amylase < 30 U/L; Body Fluid LDH < 90 U/L; Body Fluid Protein < 2.0 g/dl
[2024-09-21 17:26] LABS: Glucose - Point of Care 196 mg/dl (70-99)
[2024-09-21] MEDS: NEUTRA-PHOS POWDER PACKET 250 MG PO ×2 (17:35→20:24)
[2024-09-21] MEDS: NOVOLOG FLEXPEN-LOW RESISTANCE 1 UNITS SC (17:35)
[2024-09-21] MEDS: ZEBETA 10 MG PO (20:25)
[2024-09-21 20:30] LABS: Ceruloplasmin 27 mg/dL (15-30)
[2024-09-21 22:01] LABS: Glucose - Point of Care 154 mg/dl (70-99)
[2024-09-21 22:54] LABS: ANA, IgG Reflex to HEp-2 Detected (None Detected)
[2024-09-22] VITALS (7 sets, daily range): BP systolic 88–112; BP diastolic 51–74
[2024-09-22 02:07] LABS: Mitochondrial M2 Ab, IgG 4.9 Units (0.0-24.9)
[2024-09-22 04:32] LABS: Urine Albumin Trace (Neg - Trace); Urine Bilirubin 3+ (Negative); Urine Character Clear (Clear); Urine Color Amber; Urine Glucose Negative (Negative); Urine Ketone Trace (Negative); Urine Leukocyte 1+ (Negative); Urine Nitrite Positive (Negative); Urine Occult Blood Negative (Negative); Urine Specific Gravity 1.015 (<1.030); Urine Urobilinogen 4+ (Neg - 1+)
[2024-09-22 06:43] LABS: Urine Amorphous Seen; Urine Mucus Moderate; Urine Red Blood Cell 0-2 /HPF (0-2); Urine Squamous Cell >30 /LPF (Few); Urine Urothelial Cell >30 /LPF (FEW)
[2024-09-22 06:44] LABS: Urine Bacteria Many (Negative); Urine White Cell 16-20 /HPF (0-5)
--- NOTE | 2024-09-22 07:21 | PTCARENOTE ---
No acute events overnight. MSAS of 1. Urine and blood cultures sent to lab.
--- NOTE | 2024-09-22 08:14 | PTCARENOTE ---
Patient received from plastic outfitter. Patient resting comfortably. No events noted over night. No complaints of pain at this time. Currently on MSAS, current shift change AM score is 3 for mild tremors. 'NPO' at this time for abdominal US as well
as lower extremity US. Call zee in reach.
[2024-09-22 08:22] LABS: Glucose - Point of Care 87 mg/dl (70-99)
[2024-09-22] MEDS: HEPARIN 5000 UNITS SC ×2 (08:44→22:00)
[2024-09-22] MEDS: VITAMIN B1 100 MG PO ×2 (08:44→22:01)
[2024-09-22] MEDS: PROTONIX 40 MG PO (08:44)
[2024-09-22] MEDS: LUMINAL 64.8 MG PO ×3 (08:44→22:01)
[2024-09-22] MEDS: NOVOLOG FLEXPEN-LOW RESISTANCE SC ×3 (08:44→17:22)
[2024-09-22] MEDS: NEUTRA-PHOS POWDER PACKET 250 MG PO ×4 (08:44→22:01)
[2024-09-22] MEDS: FOLVITE 1 MG PO (08:44)
[2024-09-22 09:51] LABS: Hematocrit 35.5 % (39.0-52.0); Hemoglobin 12.1 g/dL (13.0-18.0); Mean Corp Hgb Conc. 34.1 g/dL (33.0-37.0); Mean Corpuscular Hgb 35.6 pg (27.0-31.0); Mean Corpuscular Volume 104.4 fL (80.0-94.0); Mean Platelet Volume 10.8 fL (7.4-10.4); Platelet Count 212 10^3/uL (130-400); Red Cell Dist. Width 18.3 % (11.5-14.5)
[2024-09-22 09:54] LABS: INR 1.62; PT 19.5 Sec (11.4-14.6)
[2024-09-22 10:06] LABS: ALT (SGPT) 14 U/L (0-50); AST (SGOT) 81 U/L (17-59); Albumin 2.6 g/dl (3.5-5.0); Alkaline Phosphatase 137 U/L (38-126); Blood Urea Nitrogen 10 mg/dl (9-20); Calcium 7.1 mg/dl (8.4-10.2); Carbon Dioxide 22 mmol/L (22-30); Chloride 99 mmol/L (98-107); Estimated Creatinine Clearance > 125 ml/min; Glucose 98 mg/dl (70-99); Potassium 4.2 mmol/L (3.5-5.1); Sodium 133 mmol/L (135-145); Total Bilirubin 20.4 mg/dl (0.2-1.3); Total Protein 5.8 g/dl (6.3-8.2); eGFR > 60.00
--- NOTE | 2024-09-22 10:31 | CM ---
Addendum entered by Martha Lopez RN 09/22/24 10:36:
Plan Inpatient Etoh program with [facility] if independent in mobility.
Original Note:
Patient with Hx Etoh use disorder. Room air. Receiving PO Phenobarb taper. MSAS per nursing.
Spoke with JESS Panchal; the patient was seen on 09/19 and he expressed interest in going to an Inpt program at [facility], who will need to know he is independent in mobility in order to accept.
Message to Dr Helm requesting PT/OT Evals.
Plan follow up after seen by PT/OT.
[2024-09-22 11:07] LABS: Hepatitis B Surface Antigen Negative (Negative)
[2024-09-22 11:22] LABS: Hepatitis A IgM Antibody Negative (Negative); Hepatitis B Core Ab, IgM Negative (Negative)
[2024-09-22 11:25] LABS: Hepatitis B Core Ab, Total Negative (Negative); Hepatitis B Surface Antibody Negative; Hepatitis C Antibody Negative (Negative)
[2024-09-22 12:28] LABS: Glucose - Point of Care 176 mg/dl (70-99)
[2024-09-22] MEDS: NSS (PRESERVATIVE FREE) 0.5 ML IV (12:42)
[2024-09-22] MEDS: ATIVAN 1 MG IV (12:42)
--- NOTE | 2024-09-22 14:13 | PTCARENOTE ---
Clinical report given to Ashvin
--- NOTE | 2024-09-22 14:18 | W.PN.GI.CBS2 ---
Addendum entered and electronically signed by Chanell Agustin Do, MD 09/22/24 17:39:
I saw and examined the patient.
The LOAN ORIGINATOR's note was reviewed and I agree with the note.
Comment: Cecil feels well denies abd pain, nausea/vomiting. Tolerating diet. Vitals stable, exam obese abd NTTP, jaundice, icteric. Labs reviewed LFTs uptrending. BC/UC thus far pending. Paracentesis neg for SBP
For his alcoholic hepatitis given elevated discriminant function would benefit from prednisolone once full infectious workup is negative. I d/w Dr Paige and Gabrielle Black at [facility] patient's case and they have accepted him for transfer. Transfer
center is aware. Hospitalist updated.
Addendum entered and electronically signed by SOUTH Alonso 09/22/24 16:46:
Patient prednisolone held today as per request of Dr. Maldonado ([facility]) awaiting infectious workup. UA (+ nitrite, +1 leukocyte, 16�20 WBC, many bacteria), awaiting urine culture.
Original Note:
Today's Communication / Plan
-
as per plan
Assessment / Plan
-
49yo with hx GERD, HTN, NIDDM, colon polyps, varicose vein and ETOH abuse with admission overnight with ETOH withdrawal and jaundice. On admission noted with bili 17, AST 100, ALT 15, alk phos 180, lipases 303with INR 1.55 and normal platelets
171 and initial albumin 3.5. In review with patient he admits to heavy ETOH use for years with some increased use over last year. He currently was consuming 1/2 large bottle of liquor daily with last drink 09/18. No hx prior hepatology
evaluation or rehab in past. No hx GI bleeding, confusion however slow to respond, abdominal distention, status post paracentesis with 800 mL fluid removed but now noted with LE swelling. On prednisolone day #3 with increasing LFTs. At this point
patient has been accepted in transfer to [facility].
Toxicology screen negative
Chest x-ray 09/21/2024: Minimal haziness left hemidiaphragm suggesting left lower lobe segmental atelectasis otherwise clear lungs.
Urine culture-> results pending
Blood culture 09/21/2024-> bottle #2 pending/bottle #1 no growth x 24 hours
Ascites fluid 09/21/2024-> fluid culture pending. Gram stain-> specimen concentrated by's centrifuge unable to quantitate neutrophils. WBCs on Gram stain. No organisms seen.
Ascites fluid: WBC 60, polys 18.4, fluid protein less than 2.0, fluid albumin less than 1.0, LDH less than 90, fluid amylase less than 30, cytology pending.
Hepatitis A antibody total (pending), hepatitis A IgM antibody negative, hepatitis B surface antigen negative, hepatitis B surface antibody negative, hepatitis B core total antibody negative, hepatitis B core IgM antibody negative, hepatitis C
antibody negative
SARAH IgG positive, AMA 4.9, soluble liver Ag IgG antibody pending, anti-LK M1 pending, ceruloplasmin 27, alpha-1 antitrypsin pending, iron 54, TIBC 170, percent iron saturation 31, ferritin 406.0, B12 744, folate 4.3
09/22/2024 labs: WBC 9.0, hemoglobin 12.1, hematocrit 35.5, platelets 212, PT 19.5, INR 1.62, sodium 133, potassium 4.2, chloride 99, CO2 22, BUN 10, creatinine 0.6, glucose 98, calcium 7.1, total bilirubin 20.4, AST 81, ALT 14, alk phos 137,
albumin 2.6
Ultrasound abdomen with Dopplers:
1. Borderline slow flow within the main portal vein, measuring 15 cm/s, suggestive of portal hypertension.
2. Small amount of perihepatic ascites.
3. Coarsening of the hepatic echotexture, and possible nodularity of the liver contour, suggestive of cirrhosis.
Bilateral lower extremity ultrasound:1. No evidence of right lower extremity deep venous thrombosis from the common femoral through the upper calf veins. Mild subcutaneous edema of the soft tissues of the right ankle, of unknown etiology.
-- Decompensated liver cirrhosis / alcoholic hepatitis. labs 09/18 DF 43.7 , MELD 3.0 23 repeat labs this am 09/21 MELD ( 26 ) DF 63.
- US abd - mild ascites, status post paracentesis 09/21/2024 800 mL removed
-- Alcohol withdrawal
-- Electrolyte imbalance
-- Macrocytic anemia
-- Elevated lipase. Denies any abdominal pain at present. Possible ETOH pancreatitis
Plan:
Transfer to [facility]. Awaiting bed. Excepted under the service of GI/hepatology, Dr. Gabrielle Damico
No signs of infection. No change in mental status, somewhat slow to respond. Prednisolone 40 mg # day 3
Repeat MELD labs tomorrow a.m.
Will add on lactulose daily and Xifaxan
Hepatitis panel negative. Awaiting hepatitis A antibody total. Will do complete chronic liver disease workup, labs pending.
Alcohol withdrawal protocol as per medical team. Patient has been counseled on cessation. He is agreeable.
Subjective
Subjective
Date of Service: September 22, 2024
Patient slow to respond but arousable. Oriented to year, month. Had 2 bowel movements overnight. Discussed with RN. at bedside. Denies any abdominal discomfort. Worsening bilirubin, AST and alk phos despite prednisolone treatment day #3
discriminant function 57.7, MELD 25. Discussed with [facility] and patient was accepted in transfer under the service of Dr. Gabrielle Damico. Discussed with patient and his Rosa at bedside. Medicine attending aware. RN
aware. [facility] called and already obtained report from RN. Awaiting transfer when bed available.
Objective
Data Reviewed
Laboratory Data:
Laboratory Results
09/22/24 09:31
09/22/24 09:31
Laboratory Results
PT 19.5 Sec (11.4-14.6) H 09/22/24 09:31
INR 1.62 09/22/24 09:31
Phosphorus 2.0 mg/dl (2.5-4.5) L 09/20/24 03:13
Magnesium 1.9 mg/dl (1.6-2.3) 09/20/24 03:13
Total Bilirubin 20.4 mg/dl (0.2-1.3) H* 09/22/24 09:31
AST 81 U/L (17-59) H 09/22/24 09:31
ALT 14 U/L (0-50) 09/22/24 09:31
Alkaline Phosphatase 137 U/L (38-126) H 09/22/24 09:31
Lipase 303 U/L (23-300) H 09/18/24 22:13
Vital Signs and I&O:
Vital Signs
Temp Pulse Resp BP Pulse Ox
98.5 F 89 28 112/72 96
09/22/24 11:47 09/22/24 12:00 09/22/24 12:00 09/22/24 08:00 09/22/24 11:36
I&O
09/21/24 09/22/24 09/23/24
06:59 06:59 06:59
Intake Total 1240 / 1240 360 / 360 200 / 200
Output Total 600 / 600 300 / 300
Balance 640 / 640 60 / 60 200 / 200
Physical Exam
Physical Exam
HEENT: Other (Icteric, spider angiomata on face)
Cardiology: Normal Sinus Rhythm
Pulmonary: Clear (Anterior)
GI: Soft, Distended, Non Tender and Normal Bowel Sounds
Extremities: No Edema (Bilateral lower extremity edema +2 to mid fine)
Neuro: Other (Slow to respond however arousable, oriented to person, place, month and year.)
--- NOTE | 2024-09-22 14:33 | W.PN.HOSP.TC ---
Addendum entered and electronically signed by Sd Helm MD 10/02/24 13:50:
?alcohol pancreatitis on presentation as lipas minimally elevated and ct without evidence of this.
Original Note:
Today's Communication/Plan
-
Transfer to [facility] when bed available
More than 30 minutes spent in discharge including
Final examination of the patient
Summarizing hospital stay
Instructions for continuing care to all relevant caregivers
Preparation of discharge records, prescriptions, and referral forms
Total time spent (in minutes): 36min\\s
Assessment / Plan
Assessment / Plan
Imaging
IMPRESSION: The liver is enlarged with a coarsened echotexture suggestive of cirrhosis
The gallbladder is contracted
There is mild ascites
Physical Exam
NAD, resting comfortably in bed, tremulous
Scleral icterus
Moist mucous membranes
No JVD
CTA bilateral
Normal S1-S2 no murmurs
Soft nontender nondistended bowel sounds active
No peripheral pitting edema
Jaundice
Moves extremities spontaneously
RLE more swollen then left
AAOx3
Assessment and Plan
Alcohol withdrawal in the setting of alcohol use disorder
-Thiamine IV followed by PO
-Folate
-MSAS
-Phenobarbital taper
-As needed Ativan
-Asking for help as he wants to go to rehab
Alcohol hepatitis with cirrhosis and developing coagulopathy as INR 1.9
-MDF 41.7
-MELD 21
-Prednisone started today
-Potentially may require transfer to tertiary center for hepatology eval
-Provide Vit K reepat in the AM
-Follow up on autoimmune hep labs, chronic chep labs and sylvie labs
Cirrhosis - New diagnosis - complicated by mild ascites
-Will need outpatient variceal screening
-Prior to tertiary hepatology Center accepting they would like a full sepsis workup completed
Electrolyte abnomralities
Hypomag - related to alcohol use
-Replete prn
Hypocal
-Repleted, asymptomatic
Hypophos
-Provide K phos
HypoKalemia
-Repleted
Discussed case with gastroenterology. Transfer to [facility]. Under hepatology service. Dr. Gabrielle Black
-This is for advanced hepatology management and potential transplant eval
Anticipated Discharge: Today
Subjective/Interval History
-
Date of Service: September 22, 2024
Seen and examined. No new complaints. No acute overnight events.
Still has some tremors. at bedside discussed and reviewed case and options
Objective Data
-
Labs:
Laboratory Results
09/22/24
09:31
WBC 9.0
Hgb 12.1 L
Hct 35.5 L
Plt Count 212 D
PT 19.5 H
INR 1.62
Sodium 133 L
Potassium 4.2
Chloride 99
Carbon Dioxide 22
BUN 10
Creatinine 0.6 L
Glucose 98
Calcium 7.1 L
Total Bilirubin 20.4 H*
AST 81 H
ALT 14
Alkaline Phosphatase 137 H
Vital Signs:
Vital Signs
Temp Pulse Resp BP Pulse Ox
98.5 F 89 28 112/72 96
09/22/24 11:47 09/22/24 12:00 09/22/24 12:00 09/22/24 08:00 09/22/24 11:36
I&O
09/21/24 09/22/24 09/23/24
06:59 06:59 06:59
Intake Total 1240 / 1240 360 / 360 200 / 200
Output Total 600 / 600 300 / 300
Balance 640 / 640 60 / 60 200 / 200
--- NOTE | 2024-09-22 14:38 | W.DCSUMMARY ---
Discharge Summary
Discharge Data
Date of Admission: 09/18/24
Date of Discharge: 09/22/24
-
Pending Results: No
Hospital Course
49 Male history of alcohol use disorder, hypertension, diabetes, GERD, varicose vein who presents with jaundice alcohol withdrawal symptoms. SAG 1.6 with ascitic protein of less than 2.5 consistent with cirrhosis. High MELD score along with high
Madrey's discriminant function of greater than 32 started on steroids. Abdominal ultrasound demonstrated findings consistent with cirrhosis mild ascites. Borderline slow flow with main portal vein. Small amount of perihepatic ascites. Coarsening
of hepatic echotexture nodularity of liver contour suggestive of cirrhosis. GI following recommended transfer to tertiary hepatic center with potential for transplant. Dr. Gabrielle Black accepted.
Discharge Plan
-
Patient Disposition: Acute Care Hospital
Condition: Serious
Discharge Orders:
Discharge Patient (As Directed); Ordered 09/22/24
Ordered By: Sd Helm
Discharge Date and Time
Print Language: CANADIAN
[2024-09-22] MEDS: DUPHALAC/CHRONULAC 20 GRAMS PO (15:47)
[2024-09-22 17:21] LABS: Glucose - Point of Care 131 mg/dl (70-99)
[2024-09-22 20:35] LABS: Hepatitis A Antibody, Total Negative (Negative)
[2024-09-22 21:13] LABS: LKM-1 Ab (IgG) 2.1 U (0.0-24.9); Soluble Liver Antigen Ab 1.5 U (0.0-24.9)
[2024-09-22] MEDS: XIFAXAN 550 MG PO (22:01)
[2024-09-22] MEDS: ZEBETA 10 MG PO (22:01)
[2024-09-23] VITALS (9 sets, daily range): BP systolic 88–108; BP diastolic 57–77
--- NOTE | 2024-09-23 00:35 | PTCARENOTE ---
Pt AAOx3, but drowsy. MSAS scored a 1. NSR sinus arrhythmia on tele. Remains room air. Pt up to bedside commode assist of 1 with rolling walker. Pt very unsteady and slow moving. BM, diarrhea. Bed alarm on as pt tries to get up on his own. Pt denies
pain. Awaiting a bed at [facility]. at bedside at start of shift. Call zee within reach.
[2024-09-23 00:39] LABS: Glucose - Point of Care 96 mg/dl (70-99)
[2024-09-23 05:17] LABS: % Basophils 0.8 % (0-2); % Eosinophils 0.2 % (0-6); % Immature Granulocytes 0.8 % (0-0.5); % Lymphocytes 11.1 % (20.5-51.1); % Monocytes 10.2 % (1.7-9.3); % Neutrophils 76.9 % (42.2-75.2); Absolute Basophils 0.1 10^3/uL (0-0.2); Absolute Immature Granulocytes 0.1 10^3/uL (0-0.05); Absolute Lymphocytes 1.1 10^3/uL (1.2-3.4); Absolute Monocytes 1.1 10^3/uL (0.1-0.6); Absolute Neutrophils 7.9 10^3/uL (1.4-6.5); Hematocrit 36.1 % (39.0-52.0); Hemoglobin 12.2 g/dL (13.0-18.0); Mean Corp Hgb Conc. 33.8 g/dL (33.0-37.0); Mean Corpuscular Hgb 35.3 pg (27.0-31.0); Mean Corpuscular Volume 104.3 fL (80.0-94.0); Mean Platelet Volume 11.6 fL (7.4-10.4); Nucleated Red Blood Cells % 0 % (-); Platelet Count 200 10^3/uL (130-400); Red Blood Cell Count 3.46 10^6/uL (4.70-6.10); White Blood Cell Count 10.3 10^3/uL (4.8-10.8)
[2024-09-23 05:19] LABS: INR 1.77; PT 20.8 Sec (11.4-14.6)
[2024-09-23 05:43] LABS: ALT (SGPT) 13 U/L (0-50); AST (SGOT) 83 U/L (17-59); Albumin 2.7 g/dl (3.5-5.0); Alkaline Phosphatase 134 U/L (38-126); Blood Urea Nitrogen 10 mg/dl (9-20); Carbon Dioxide 22 mmol/L (22-30); Chloride 100 mmol/L (98-107); Direct Bilirubin 19.7 mg/dl (0.0-0.4); Estimated Creatinine Clearance > 125 ml/min; Glucose 92 mg/dl (70-99); Potassium 3.9 mmol/L (3.5-5.1); Sodium 135 mmol/L (135-145); Total Bilirubin 22.3 mg/dl (0.2-1.3); eGFR > 60.00
--- NOTE | 2024-09-23 08:30 | PTCARENOTE ---
Patient received from awake overnight monitor. Patient resting comfortably. No events noted over night. No complaints of pain at this time. Remains on MSAS, current shift change AM score is 2 still for mild tremors. Awaiting transport to [place], at this
time is planned for 1400 today ). Call zee in reach.
[2024-09-23] MEDS: NOVOLOG FLEXPEN-LOW RESISTANCE SC (08:41)
[2024-09-23] MEDS: DUPHALAC/CHRONULAC 20 GRAMS PO (08:42)
[2024-09-23] MEDS: VITAMIN B1 100 MG PO (08:42)
[2024-09-23] MEDS: NEUTRA-PHOS POWDER PACKET 250 MG PO (08:42)
[2024-09-23] MEDS: FOLVITE 1 MG PO (08:42)
[2024-09-23] MEDS: PROTONIX 40 MG PO (08:42)
[2024-09-23] MEDS: LUMINAL 32.4 MG PO (08:42)
[2024-09-23] MEDS: HEPARIN 5000 UNITS SC (08:42)
[2024-09-23] MEDS: XIFAXAN 550 MG PO (08:42)
[2024-09-23 08:52] LABS: Glucose - Point of Care 85 mg/dl (70-99)
--- NOTE | 2024-09-23 13:47 | PTCARENOTE ---
Report called to Renay MOROCHO at [facility]. Waiting for transport.
--- NOTE | 2024-09-23 13:53 | W.PN.GI.CBS2 ---
Today's Communication / Plan
-
Start prednisolone today day 1
Calculate Lille score day 3 and 7
Accepted but waiting hepatology bed at [facility]
Assessment / Plan
-
49yo with hx GERD, HTN, NIDDM, colon polyps, varicose vein and ETOH abuse with admission overnight with ETOH withdrawal and jaundice. On admission noted with bili 17, AST 100, ALT 15, alk phos 180, lipases 303with INR 1.55 and normal platelets
171 and initial albumin 3.5. In review with patient he admits to heavy ETOH use for years with some increased use over last year. He currently was consuming 1/2 large bottle of liquor daily with last drink 09/18. No hx prior hepatology
evaluation or rehab in past. No hx GI bleeding, confusion however slow to respond, abdominal distention, status post paracentesis with 800 mL fluid removed but now noted with LE swelling. On prednisolone day #3 with increasing LFTs. At this point
patient has been accepted in transfer to [facility].
Toxicology screen negative
Chest x-ray 09/21/2024: Minimal haziness left hemidiaphragm suggesting left lower lobe segmental atelectasis otherwise clear lungs.
Urine culture-> results pending
Blood culture 09/21/2024-> bottle #2 pending/bottle #1 no growth x 24 hours
Ascites fluid 09/21/2024-> fluid culture pending. Gram stain-> specimen concentrated by's centrifuge unable to quantitate neutrophils. WBCs on Gram stain. No organisms seen.
Ascites fluid: WBC 60, polys 18.4, fluid protein less than 2.0, fluid albumin less than 1.0, LDH less than 90, fluid amylase less than 30, cytology pending.
Hepatitis A antibody total (pending), hepatitis A IgM antibody negative, hepatitis B surface antigen negative, hepatitis B surface antibody negative, hepatitis B core total antibody negative, hepatitis B core IgM antibody negative, hepatitis C
antibody negative
SARAH IgG positive, AMA 4.9, soluble liver Ag IgG antibody pending, anti-LK M1 pending, ceruloplasmin 27, alpha-1 antitrypsin pending, iron 54, TIBC 170, percent iron saturation 31, ferritin 406.0, B12 744, folate 4.3
09/22/2024 labs: WBC 9.0, hemoglobin 12.1, hematocrit 35.5, platelets 212, PT 19.5, INR 1.62, sodium 133, potassium 4.2, chloride 99, CO2 22, BUN 10, creatinine 0.6, glucose 98, calcium 7.1, total bilirubin 20.4, AST 81, ALT 14, alk phos 137,
albumin 2.6
Impression
-- Decompensated liver cirrhosis / alcoholic hepatitis
MELD 3.0 = 27 (09/23)
- US abd - mild ascites, status post paracentesis 09/21/2024 800 mL removed
-- Alcohol withdrawal
-- Electrolyte imbalance
-- Macrocytic anemia
-- Elevated lipase
Plan:
- LFTs rising
- Infectious workup thus far neg ( UC, paracentesis CXR)
- Start prednisolone today Day 1
- Check Lille score day 3 and 7
- Accepted for transfer to [place] for liver transplant evaluation. Awaiting bed
- C/w ETOH w/d protocol
- C/w xifaximin and lactulose
- C/w diet
Will follow with you
Subjective
Subjective
Date of Service: September 23, 2024
He denies abd pain, nausea/vomiting. Tolerating diet
Objective
Data Reviewed
Laboratory Data:
Laboratory Results
09/23/24 04:22
09/23/24 04:22
Laboratory Results
PT 20.8 Sec (11.4-14.6) H 09/23/24 04:22
INR 1.77 09/23/24 04:22
Phosphorus 2.0 mg/dl (2.5-4.5) L 09/20/24 03:13
Magnesium 1.9 mg/dl (1.6-2.3) 09/20/24 03:13
Total Bilirubin 22.3 mg/dl (0.2-1.3) H* 09/23/24 04:22
AST 83 U/L (17-59) H 09/23/24 04:22
ALT 13 U/L (0-50) 09/23/24 04:22
Alkaline Phosphatase 134 U/L (38-126) H 09/23/24 04:22
Lipase 303 U/L (23-300) H 09/18/24 22:13
Vital Signs and I&O:
Vital Signs
Temp Pulse Resp BP Pulse Ox
98.6 F 83 23 103/77 95
09/23/24 11:04 09/23/24 12:40 09/23/24 12:40 09/23/24 12:40 09/23/24 10:17
I&O
09/22/24 09/23/24 09/24/24
06:59 06:59 06:59
Intake Total 360 / 360 680 / 680
Output Total 300 / 300 250 / 250
Balance 60 / 60 430 / 430
Physical Exam
Physical Exam
GEN: No acute distress
HEENT: +icteric, extraocular movements intact, clear oropharynx without exudates
GI: soft, mildly-distended, not tender to palpation, normal active bowel sounds, no hepatosplenomegaly
EXT: warm, well perfused, 1+ edema bilaterally jaundiced
NEURO: AAOx3, non-focal slowed speech
[2024-09-23] MEDS: NEUTRA-PHOS POWDER PACKET PO (13:56)
[2024-09-23] MEDS: NOVOLOG FLEXPEN-LOW RESISTANCE 1 UNITS SC (13:56)
[2024-09-23 14:03] LABS: Glucose - Point of Care 166 mg/dl (70-99)
--- NOTE | 2024-09-23 14:12 | CM ---
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 Transfer for higher level of care. CM will continue to follow for discharge planning needs.
--- NOTE | 2024-09-23 14:52 | PTCARENOTE ---
Patient left via EMS to [facility]. Patient left with all known belongings, was at bedside.
--- NOTE | 2024-09-23 15:17 | W.DCSUMMARY ---
Discharge Summary
Discharge Data
Date of Admission: 09/18/24
Date of Discharge: 09/23/24
-
Pending Results: No
Hospital Course
49 Male history of alcohol use disorder, hypertension, diabetes, GERD, varicose vein who presents with jaundice alcohol withdrawal symptoms. SAG 1.6 with ascitic protein of less than 2.5 consistent with cirrhosis. High MELD score along with high
Madrey's discriminant function of greater than 32 started on steroids. Abdominal ultrasound demonstrated findings consistent with cirrhosis mild ascites. Borderline slow flow with main portal vein. Small amount of perihepatic ascites. Coarsening
of hepatic echotexture nodularity of liver contour suggestive of cirrhosis. GI following recommended transfer to tertiary hepatic center with potential for transplant. Dr. Gabrielle Black accepted.
He was seen and examined on the day of discharge (09/23/2024). No new complaints. No acute overnight events.
Physical Exam
NAD, resting comfortably in bed, tremulous
Scleral icterus
Moist mucous membranes
No JVD
CTA bilateral
Normal S1-S2 no murmurs
Soft nontender nondistended bowel sounds active
No peripheral pitting edema
Jaundice
Moves extremities spontaneously
RLE more swollen then left
AAOx3
Assessment and Plan
Alcohol withdrawal in the setting of alcohol use disorder
-Thiamine IV followed by PO
-Folate
-MSAS
-Phenobarbital taper
-As needed Ativan
-Asking for help as he wants to go to rehab
Alcohol hepatitis with cirrhosis and developing coagulopathy as INR 1.9
-MDF improving on steroids
-MELD 21y
-Potentially may require transfer to tertiary center for hepatology eval
-Provide Vit K, reepat in the AM
-Follow up on autoimmune hep labs, chronic hep labs and sylvie labs
-Lactulose and rifaximin
Cirrhosis - New diagnosis - complicated by mild ascites
-Will need outpatient variceal screening
-Prior to tertiary hepatology Center accepting they would like a full sepsis workup completed
Electrolyte abnormalities
Hypomag - related to alcohol use
-Replete prn
Hypocal
-Repleted, asymptomatic
Hypophos
-Provide K phos
HypoKalemia
-Repleted
Discharge Plan
-
Patient Disposition: Acute Care Hospital
Condition: Serious
Discharge Orders:
Discharge Patient (As Directed); Ordered 09/22/24
Ordered By: Sd Helm
Discharge Date and Time
Discharge Date/Time: 09/23/24 14:45
Print Language: BELGIAN
[2024-09-23 21:39] LABS: Alpha-1-Antitrypsin 256 mg/dL (90-200); Alpha-1-Antitrypsin Phenotype M1M1
--- NOTE | 2024-09-26 14:18 | PN.CDI ---
CDI
- -
CDI:
Physician Documentation Request
Admit Date: 09/18/24 23:21
Dear Doctor Volodymyr,
Please review the following and provide your response in the progress notes.
Clinical Indicators:
GI PN, 09/20
addendum, 09/20
#clarification likely acute ETOH pancreatitis with recent increased use
Please clarify the following:
Acute Alcoholic Pancreatitis was present on admission
Acute Alcoholic Pancreatitis was not present on admission
Other (Please specify)
Use of terms such as suspected, likely, concern for, or probable (associated with a specific diagnosis that is being evaluated, monitored, or treated as if it exists) are acceptable and can be coded in the inpatient setting, when documented at the
time of discharge.
Thank you,
Shu Arora RN BSN CCDS
CDI Specialist
please contact via tiger text
Please use your independent medical judgment in providing your response.
[2024-10-01 16:15] LABS: ANA, HEp-2, IgG <1:80 (<1:80)
== END 2024-09-23 14:45 | disposition short-term general hospital (02) | DRG 896 ==
LOC: IMU 23:21
PROVIDERS: Nurse Practitioner; Nurse Practitioner Adult Health; Radiology Diagnostic Radiology; ADMITTING PHYSICIAN Hospitalist; ATTENDING PHYSICIAN Hospitalist; CONSULT PHYSICIAN Internal Medicine Gastroenterology; EMERGENCY PHYSICIAN Emergency Medicine; FAMILY PHYSICIAN Family Medicine
PROC: 0W9G3ZZ Drainage of Peritoneal Cavity, Percutaneous Approach (ICD-10-PCS; 2024-09-21)
DX: F10.139 Alcohol abuse with withdrawal, unspecified (principal); K85.90 Acute pancreatitis without necrosis or infection, unspecified; D68.9 Coagulation defect, unspecified; K70.31 Alcoholic cirrhosis of liver with ascites; I10 Essential (primary) hypertension; K21.9 Gastro-esophageal reflux disease without esophagitis; E11.9 Type 2 diabetes mellitus without complications; K70.11 Alcoholic hepatitis with ascites; E83.42 Hypomagnesemia; E83.39 Other disorders of phosphorus metabolism; E87.6 Hypokalemia; F41.9 Anxiety disorder, unspecified; R61 Generalized hyperhidrosis; R25.1 Tremor, unspecified; R06.02 Shortness of breath; K29.20 Alcoholic gastritis without bleeding; Z86.0100 Personal history of colon polyps, unspecified; Z87.891 Personal history of nicotine dependence; R74.8 Abnormal levels of other serum enzymes; D53.9 Nutritional anemia, unspecified
CPT/HCPCS: 88305; 49083; 71045; 76700; 80053; 80143; 80179; 80306; 81003; 81015; 82042; 82077; 82103; 82104; 82150; 82248; 82390; 82607; 82728; 82746; 82962; 83036; 83516; 83540; 83550; 83615; 83690; 83735; 84100; 84157; 85025; 85027; 85610; 86038; 86039; 86376; 86381; 86704; 86705; 86706; 86708; 86709; 86803; 87015; 87040; 87070; 87086; 87205; 87340; 88112; 88341; 88342; 89051; 93005; 93971; 93975; 96361; 96374; 96375; 99285